=== PATIENT | female | born 1950 | race Caucasian/White ===

== ENCOUNTER → 2024-07-26 | Outpatient (CLI) | payer MEDICARE ==
--- NOTE | 2024-07-26 15:04 | HMCSR ---
APPROVED REPORT EXAM: Two-dimensional and M-mode echocardiogram with Doppler and color Doppler. INDICATION ICD: I48.20 2D Dimensions RVDd3.2 cmLVEF(%)48.8 (>50%)LVED Vol(simp.)82.9 mL IVSd0.7 (0.7-1.1cm)FS(%)24 %LVES Vol(simp.)33.1 mL LVDd4.4 (3.8-5.6cm)LA (2D)4.9 (1.6-4.0cm)LVEF(%, simp.)60 % PWd1.0 (0.7-1.1cm)Ao Root(2D)3.0 (2.0-3.7cm)LA ESV INDEX (BP)43.23 mL/m2 LVDs3.3 (2.5-4.0cm)LVOT diam2.2 (1.8-2.4cm) IVC diam1.6 cm M-Mode Dimensions EPSS0.7 cm LA (MM)4.9 (1.6-4.0cm) Ao Root(MM)3.1 (2.0-3.7cm) Aortic Valve AoV Vmax1.2 m/Kalyn Peak GR5.7 mmHg AoV VTI0.2 mAo Mean GR3.0 mmHg Mitral Valve MV E Vmax90.2 cm/sDECEL Lixo003 ms MV A Vmax29.6 cm/sP 1/2 T62 ms E/A ratio3.0MVA (PHT)3.5 cm2 TDI E/E' Lrhmmo57.3E/E' Xcsfgmc94.0 Medial E' Peak V8.00 cm/sLateral E' Peak V9.00 cm/s Tricuspid Valve TR Vmax2.3 m/sRAP (EST) 3 vqShPWZZ67.5 mmHg TR Peak GR21.5 mmHg Left Ventricle The left ventricle is normal size. There is normal left ventricular wall thickness. LVEF is 55-60%. T he left ventricular diastolic function is normal. Right Ventricle The right ventricle is normal size. Atria The left atrium size is normal. The right atrium is moderately dilated. Aortic Valve The aortic valve is normal in structure. No aortic regurgitation is present. There is no aortic valvu lar stenosis. Mitral Valve The mitral valve is normal in structure. There is no mitral valve regurgitation noted. There is no mi tral valve stenosis. Tricuspid Valve The tricuspid valve is normal in structure. There is trace of tricuspid valve regurgitation noted. Pulmonic Valve The pulmonary valve is normal in structure. There is no pulmonic valvular regurgitation. Great Vessels The aortic root is normal in size. The IVC is normal in size and collapses >50% with inspiration. Pericardium There is trivial pericardial effusion. Other Information Quality : Adequate Conclusion The left ventricle is normal size. LVEF is 55-60%.
== END | disposition home or self-care (01) ==
LOC: RAH 12:18 → EDUNIT# 13:00
PROVIDERS: ATTEND Internal Medicine Cardiovascular Disease
DX: I51.7 Cardiomegaly (principal); I31.39 Other pericardial effusion (noninflammatory); I48.20 Chronic atrial fibrillation, unspecified
CPT/HCPCS: 93306